=== PATIENT | female | born 1975 | race Caucasian/White ===

== ENCOUNTER 2021-03-23 14:31 | Inpatient (IN) | payer SELFPAY ==
[2021-03-23 15:09] LABS: #Basophils 0.1 10x3/uL (0.0-0.2); #Eosinphils 0.2 10x3/uL (0.0-0.5); #Monocytes 0.8 10x3/uL (0.0-1.1); #Neutrophils 7.9 10x3/uL (1.5-8.4); %Basophils 0.6 % (0.0-2.0); %Eosinophils 2.2 % (0.0-6.0); %Lymphocytes 13.8 % (18.0-47.0); %Monocytes 7.7 % (0.0-10.0); %Neutrophils 74.8 % (40.0-75.0); Mean Corpuscular HGB CONC 31.9 g/dL (32.0-36.0); Mean Corpuscular Hemoglobin 27.8 pg (27.0-33.0); Mean Corpuscular Volume 87.2 fl (81.6-98.3); Mean Platelet Volume 11.1 fl (7.4-10.4); Platelet Count 338 10x3/uL (150-450); RBC Distribution Width 14.8 % (11.5-14.5); Red Blood Cell (RBC) Count 4.68 10x6/uL (3.90-5.03); White Blood Cell (WBC) Count 10.6 10x3/uL (3.5-10.5)
[2021-03-23 15:11] LABS: BHCG - Serum Negative (NEGATIVE); Pregs Control Background? CLEAR/WHITE (CLR/WHITE); Pregs Control Bar Appear? YES (CONTROL BAR)
[2021-03-23 15:18] LABS: ALT (SGPT) 23 U/L (8-55); AST (SGOT) 15 U/L (5-34); Albumin 3.8 g/dL (3.5-5.0); Alkaline Phosphatase 98 U/L (40-110); Anion Gap 15 mmol/L (10-20); BUN (Urea Nitrogen) 20 mg/dL (7.0-18.7); Bilirubin, Total 0.3 mg/dL (0.2-1.2); Calc. Creatinine Clearance 0 mL/min (70-130); Calcium 8.7 mg/dL (7.8-10.44); Carbon Dioxide 21 mmol/L (22-29); Chloride 103 mmol/L (98-107); Globulin 3.9 g/dL (2.4-3.5); Glucose 330 mg/dL (70-105); Lipase 13 U/L (8-78); Potassium 4.3 mmol/L (3.5-5.1); Protein, Total 7.7 g/dL (6.0-8.3); Sodium 135 mmol/L (136-145)
[2021-03-23 15:24] LABS: Actual Bicarbonate (HCO3a) 24.6 mEq/L (22-28); Base Excess (BEa) 0.2 mEq/L (-2.0 to +3.0); CO2 Tension 39.2 mmHg (35.0-45.0); Calcium, Ionized (arterial) 1.14 mmol/L (1.12-1.30); Hemoglobin (Hb) 12.5 g/dL (12.0-16.0); O2 Tension (PaO2), arterial 72.4 mmHg (80.0-100.0); Potassium - ABG Lab 3.9 mmol/L (3.70-5.30); Puncture Site LBA; pH, Arterial 7.42 (7.35-7.45)
[2021-03-23 15:38] LABS: CKMB 2.5 ng/mL (0-6.6)
[2021-03-23 16:41] LABS: SARS-CoV-2 NAA Rapid Test DETECTED (NotDetected)
[2021-03-23] MEDS ORDERED: Piperacillin/Tazobactam 3.375 GM VIAL ONE (16:54)
[2021-03-23] MEDS ORDERED: Dexamethasone 10 MG/ML VIAL ONE (16:55)
[2021-03-23] MEDS ORDERED: Aspirin Chewable 81 MG TAB ONE (17:14)
[2021-03-23] MEDS ORDERED: Nitroglycerin 2% Ointment 1 INCH/1 GM Packet ONE (17:15)
[2021-03-23] MEDS ORDERED: Vancomycin HCl 1.5 GM, Admixture Fee 1 EACH in Sodium Chloride 0.9% 500 ML IVPB SCH (18:00)
[2021-03-23] MEDS ORDERED: Acetaminophen 325 MG TAB PO PRN (19:47)
[2021-03-23] MEDS ORDERED: Dextrose 5% in Water 1,000 ML IV PRN (19:47)
[2021-03-23] MEDS ORDERED: Senokot S 8.6-50 MG TAB PO PRN (19:47)
[2021-03-23] MEDS ORDERED: Calcium Carbonate 500 MG ChewTAB PO PRN (19:47)
[2021-03-23] MEDS ORDERED: Dextrose 50% Abboject 50 ML SYRINGE SLOW IVP PRN (19:47)
[2021-03-23] MEDS ORDERED: Ondansetron PF 4 MG/2 ML Vial IVP PRN (19:47)
[2021-03-23 19:48] VITALS: BMI 42.5
[2021-03-23] MEDS ORDERED: Sodium Chloride 0.9% 1,000 ML IV SCH (20:00)
[2021-03-23] MEDS: Atorvastatin Calcium 40 MG TAB PO SCH (21:41)
[2021-03-23] MEDS: Benzonatate 100 MG CAP PO SCH (21:42)
[2021-03-23] MEDS: HumaLOG 300 UNITS/3 ML VIAL SC PRN (21:42)
[2021-03-23] MEDS: Famotidine 20 MG TAB PO SCH (21:42)
[2021-03-23] MEDS: Lisinopril 10 MG TAB PO SCH (21:42)
[2021-03-23] MEDS: Lantus 1000 UNITS/10 ML VIAL SC SCH (21:43)
[2021-03-23] MEDS: Cefepime 1 GM in Sodium Chloride 0.9% 100 ML IVPB SCH (21:45)
[2021-03-23 21:52] LABS: HIV (1/2) Antibody/Antigen Non-Reactive (NonReactive); HIV 1/2 INDEX 0.12 S/CO (<1.00)
[2021-03-23 23:55] LABS: Legionella Urinary Ag Negative (Negative); Strep pneumo Urine Ag NEGATIVE (NEGATIVE)
[2021-03-24 05:11] LABS: ALT (SGPT) 23 U/L (8-55); AST (SGOT) 14 U/L (5-34); Albumin 3.7 g/dL (3.5-5.0); Alkaline Phosphatase 94 U/L (40-110); Anion Gap 16 mmol/L (10-20); BUN (Urea Nitrogen) 20 mg/dL (7.0-18.7); Bilirubin, Total 0.4 mg/dL (0.2-1.2); Calc. Creatinine Clearance 129 mL/min (70-130); Calcium 8.9 mg/dL (7.8-10.44); Carbon Dioxide 20 mmol/L (22-29); Chloride 104 mmol/L (98-107); Globulin 3.9 g/dL (2.4-3.5); Glucose 361 mg/dL (70-105); Potassium 4.6 mmol/L (3.5-5.1); Protein, Total 7.6 g/dL (6.0-8.3); Sodium 135 mmol/L (136-145)
[2021-03-24 05:13] LABS: #Basophils 0.1 10x3/uL (0.0-0.2); #Monocytes 0.4 10x3/uL (0.0-1.1); #Neutrophils 9.3 10x3/uL (1.5-8.4); %Basophils 0.5 % (0.0-2.0); %Eosinophils 0.1 % (0.0-6.0); %Lymphocytes 8.4 % (18.0-47.0); %Monocytes 3.5 % (0.0-10.0); %Neutrophils 86.2 % (40.0-75.0); Hemoglobin 12.6 g/dL (12.0-15.5); Mean Corpuscular HGB CONC 32.1 g/dL (32.0-36.0); Mean Corpuscular Hemoglobin 28.2 pg (27.0-33.0); Mean Corpuscular Volume 87.7 fl (81.6-98.3); Mean Platelet Volume 11.3 fl (7.4-10.4); Platelet Count 333 10x3/uL (150-450); RBC Distribution Width 14.8 % (11.5-14.5); Red Blood Cell (RBC) Count 4.47 10x6/uL (3.90-5.03); White Blood Cell (WBC) Count 10.7 10x3/uL (3.5-10.5)
[2021-03-24] MEDS: HumaLOG 300 UNITS/3 ML VIAL SC PRN ×2 (06:16→11:52)
[2021-03-24] MEDS: Lisinopril 10 MG TAB PO SCH ×2 (08:53→20:59)
[2021-03-24] MEDS: Aspirin 81 mg Enteric Coated Tablet PO SCH (08:53)
[2021-03-24] MEDS: Cefepime 1 GM in Sodium Chloride 0.9% 100 ML IVPB SCH ×2 (08:53→20:57)
[2021-03-24] MEDS: Famotidine 20 MG TAB PO SCH ×2 (08:53→20:59)
[2021-03-24] MEDS: Clopidogrel Bisulfate 75 MG TAB PO SCH (08:54)
[2021-03-24] MEDS: Benzonatate 100 MG CAP PO SCH ×3 (08:54→20:59)
[2021-03-24] MEDS: Carvedilol 3.125 MG TAB PO SCH ×2 (08:54→16:59)
[2021-03-24] MEDS: Empagliflozin 10 MG TAB PO SCH (08:54)
[2021-03-24] MEDS: Enoxaparin Sodium 40 MG/0.4 ML SYRINGE SC SCH (08:54)
[2021-03-24] MEDS: VANCOMYCIN 1.5 GM in Sodium Chloride 0.9% 500 ML IVPB SCH ×2 (10:23→20:58)
[2021-03-24] MEDS ORDERED: Ventolin HFA Inhaler 60 PUFF INHALER INH SCH ×3 (13:30→19:00)
[2021-03-24] MEDS ORDERED: Lantus 1000 UNITS/10 ML VIAL SC SCH (13:45)
[2021-03-24] MEDS ORDERED: Gabapentin 400 MG CAP PO SCH (14:00)
[2021-03-24] MEDS: Gabapentin 400 MG CAP PO SCH ×3 (14:54→21:00)
[2021-03-24] MEDS: Ventolin HFA Inhaler 60 PUFF INHALER INH SCH (19:30)
[2021-03-24 20:45] LABS: SARS-CoV-2 IgG Ab Non-Reactive (NonReactive)
[2021-03-24] MEDS: Lantus 1000 UNITS/10 ML VIAL SC SCH (20:57)
[2021-03-24 20:58] LABS: SARS-CoV-2 IgG Index 1.17 S/CO (< 1.40)
[2021-03-24] MEDS: Atorvastatin Calcium 40 MG TAB PO SCH (20:58)
[2021-03-24] MEDS: Dexamethasone 4 mg/ml Vial SLOW IVP SCH (23:10)
[2021-03-25] MEDS: Ventolin HFA Inhaler 60 PUFF INHALER INH SCH ×4 (01:00→19:08)
[2021-03-25] MEDS ORDERED: Amlodipine 5 MG TAB PO SCH (05:15)
[2021-03-25] MEDS: HumaLOG 300 UNITS/3 ML VIAL SC PRN (05:27)
[2021-03-25 06:45] LABS: ALT (SGPT) 34 U/L (8-55); AST (SGOT) 23 U/L (5-34); Albumin 3.4 g/dL (3.5-5.0); Alkaline Phosphatase 82 U/L (40-110); Anion Gap 16 mmol/L (10-20); BUN (Urea Nitrogen) 22 mg/dL (7.0-18.7); Bilirubin, Total 0.3 mg/dL (0.2-1.2); CRP (Inflammatory) 4.43 mg/dL (= or < 0.5); Calc. Creatinine Clearance 140 mL/min (70-130); Calcium 8.5 mg/dL (7.8-10.44); Carbon Dioxide 20 mmol/L (22-29); Chloride 105 mmol/L (98-107); Globulin 3.7 g/dL (2.4-3.5); Glucose 158 mg/dL (70-105); Potassium 3.8 mmol/L (3.5-5.1); Protein, Total 7.1 g/dL (6.0-8.3); Sodium 137 mmol/L (136-145)
[2021-03-25] MEDS: Zinc Gluconate 50 MG TAB PO SCH (08:41)
[2021-03-25] MEDS: Empagliflozin 10 MG TAB PO SCH (08:41)
[2021-03-25] MEDS: Ascorbic Acid 500 mg Chewable Tablet PO SCH (08:42)
[2021-03-25] MEDS: Gabapentin 400 MG CAP PO SCH ×3 (08:42→20:15)
[2021-03-25] MEDS: Clopidogrel Bisulfate 75 MG TAB PO SCH (08:42)
[2021-03-25] MEDS: Famotidine 20 MG TAB PO SCH ×2 (08:42→20:17)
[2021-03-25] MEDS: Aspirin 81 mg Enteric Coated Tablet PO SCH (08:42)
[2021-03-25] MEDS: Carvedilol 3.125 MG TAB PO SCH ×2 (08:42→18:44)
[2021-03-25] MEDS: Lisinopril 10 MG TAB PO SCH ×2 (08:42→20:18)
[2021-03-25] MEDS: Benzonatate 100 MG CAP PO SCH ×3 (08:42→20:16)
[2021-03-25] MEDS: Cholecalciferol (Vitamin D3) 400 UNITS TAB PO SCH (08:42)
[2021-03-25] MEDS: Lantus 1000 UNITS/10 ML VIAL SC SCH ×2 (08:43→21:00)
[2021-03-25] MEDS: Enoxaparin Sodium 40 MG/0.4 ML SYRINGE SC SCH (08:43)
[2021-03-25] MEDS ORDERED: Lantus 1000 UNITS/10 ML VIAL SC SCH (09:00)
[2021-03-25] MEDS ORDERED: REMDESIVIR 200 MG in Sodium Chloride 0.9% 250 ML 210 ML IV SCH ×2 (10:00→12:00)
[2021-03-25] MEDS: HYDROcodone/Acetaminophen 5/325 mg Tablet PO PRN (13:43)
[2021-03-25] MEDS: Guaifenesin DM 100-10/5 ML UDCUP PO PRN (18:44)
[2021-03-25] MEDS: Atorvastatin Calcium 40 MG TAB PO SCH (20:16)
[2021-03-25] MEDS: Dexamethasone 4 mg/ml Vial SLOW IVP SCH (20:18)
[2021-03-26] MEDS: Ventolin HFA Inhaler 60 PUFF INHALER INH SCH ×4 (00:46→18:57)
[2021-03-26] MEDS: HYDROcodone/Acetaminophen 5/325 mg Tablet PO PRN ×2 (01:15→23:40)
[2021-03-26 05:30] LABS: ALT (SGPT) 26 U/L (8-55); AST (SGOT) 16 U/L (5-34); Albumin 3.4 g/dL (3.5-5.0); Alkaline Phosphatase 77 U/L (40-110); Anion Gap 16 mmol/L (10-20); BUN (Urea Nitrogen) 27 mg/dL (7.0-18.7); Bilirubin, Total 0.3 mg/dL (0.2-1.2); Calc. Creatinine Clearance 111 mL/min (70-130); Calcium 8.4 mg/dL (7.8-10.44); Carbon Dioxide 19 mmol/L (22-29); Chloride 104 mmol/L (98-107); Globulin 4.2 g/dL (2.4-3.5); Glucose 247 mg/dL (70-105); Potassium 4.2 mmol/L (3.5-5.1); Protein, Total 7.6 g/dL (6.0-8.3); Sodium 135 mmol/L (136-145)
[2021-03-26] MEDS: Enoxaparin Sodium 40 MG/0.4 ML SYRINGE SC SCH (08:34)
[2021-03-26] MEDS: Gabapentin 400 MG CAP PO SCH ×3 (08:34→21:31)
[2021-03-26] MEDS: Lisinopril 10 MG TAB PO SCH ×2 (08:35→21:58)
[2021-03-26] MEDS: Clopidogrel Bisulfate 75 MG TAB PO SCH (08:35)
[2021-03-26] MEDS: Benzonatate 100 MG CAP PO SCH ×3 (08:35→21:32)
[2021-03-26] MEDS: Aspirin 81 mg Enteric Coated Tablet PO SCH (08:35)
[2021-03-26] MEDS: Famotidine 20 MG TAB PO SCH ×2 (08:35→21:32)
[2021-03-26] MEDS: Amlodipine 5 MG TAB PO SCH (08:35)
[2021-03-26] MEDS: Ascorbic Acid 500 mg Chewable Tablet PO SCH (08:35)
[2021-03-26] MEDS: Zinc Gluconate 50 MG TAB PO SCH (08:35)
[2021-03-26] MEDS: Carvedilol 3.125 MG TAB PO SCH ×2 (08:35→17:38)
[2021-03-26] MEDS: Cholecalciferol (Vitamin D3) 400 UNITS TAB PO SCH (08:35)
[2021-03-26] MEDS: Lantus 1000 UNITS/10 ML VIAL SC SCH ×2 (08:37→22:31)
[2021-03-26] MEDS: Empagliflozin 10 MG TAB PO SCH (08:37)
[2021-03-26] MEDS: REMDESIVIR 100 MG in Sodium Chloride 0.9% 250 ML 230 ML IV SCH (10:58)
[2021-03-26] MEDS: HumaLOG 300 UNITS/3 ML VIAL SC PRN ×2 (11:37→18:16)
[2021-03-26] MEDS: Guaifenesin DM 100-10/5 ML UDCUP PO PRN ×2 (15:53→21:30)
[2021-03-26] MEDS: Atorvastatin Calcium 40 MG TAB PO SCH (21:33)
[2021-03-26] MEDS: Dexamethasone 4 mg/ml Vial SLOW IVP SCH (21:35)
[2021-03-26 22:36] LABS: Mycoplasma pneumoniae IgG AB 1366 U/mL (0-99); Mycoplasma pneumoniae IgM AB Less than 770 U/mL (0-769)
[2021-03-27] MEDS: Ventolin HFA Inhaler 60 PUFF INHALER INH SCH ×4 (00:34→15:00)
[2021-03-27] MEDS: Ventolin HFA Inhaler 60 PUFF INHALER INH PRN ×2 (04:40→19:59)
[2021-03-27 04:54] LABS: ALT (SGPT) 31 U/L (8-55); AST (SGOT) 22 U/L (5-34); Albumin 3.3 g/dL (3.5-5.0); Alkaline Phosphatase 79 U/L (40-110); Anion Gap 15 mmol/L (10-20); BUN (Urea Nitrogen) 35 mg/dL (7.0-18.7); Bilirubin, Total 0.2 mg/dL (0.2-1.2); Calc. Creatinine Clearance 125 mL/min (70-130); Calcium 8.2 mg/dL (7.8-10.44); Carbon Dioxide 21 mmol/L (22-29); Chloride 104 mmol/L (98-107); Glucose 314 mg/dL (70-105); Potassium 4.7 mmol/L (3.5-5.1); Protein, Total 7.3 g/dL (6.0-8.3); Sodium 135 mmol/L (136-145)
[2021-03-27] MEDS: HumaLOG 300 UNITS/3 ML VIAL SC PRN ×4 (05:53→22:18)
[2021-03-27] MEDS: Amlodipine 5 MG TAB PO SCH (08:56)
[2021-03-27] MEDS: Empagliflozin 10 MG TAB PO SCH (08:56)
[2021-03-27] MEDS: Aspirin 81 mg Enteric Coated Tablet PO SCH (08:56)
[2021-03-27] MEDS: Carvedilol 3.125 MG TAB PO SCH ×2 (08:56→17:18)
[2021-03-27] MEDS: Ascorbic Acid 500 mg Chewable Tablet PO SCH (08:56)
[2021-03-27] MEDS: Clopidogrel Bisulfate 75 MG TAB PO SCH (08:56)
[2021-03-27] MEDS: Enoxaparin Sodium 40 MG/0.4 ML SYRINGE SC SCH (08:56)
[2021-03-27] MEDS: Cholecalciferol (Vitamin D3) 400 UNITS TAB PO SCH (08:56)
[2021-03-27] MEDS: Famotidine 20 MG TAB PO SCH ×2 (08:56→21:36)
[2021-03-27] MEDS: Benzonatate 100 MG CAP PO SCH ×3 (08:56→21:36)
[2021-03-27] MEDS: Gabapentin 400 MG CAP PO SCH ×3 (08:57→21:36)
[2021-03-27] MEDS: Lisinopril 10 MG TAB PO SCH ×2 (08:57→21:37)
[2021-03-27] MEDS: Lantus 1000 UNITS/10 ML VIAL SC SCH ×2 (08:57→21:37)
[2021-03-27] MEDS: Zinc Gluconate 50 MG TAB PO SCH (08:57)
[2021-03-27] MEDS: guaiFENesin ER 600 MG TAB PO SCH ×2 (08:59→21:38)
[2021-03-27] MEDS: REMDESIVIR 100 MG in Sodium Chloride 0.9% 250 ML 230 ML IV SCH (12:58)
[2021-03-27] MEDS: Atorvastatin Calcium 40 MG TAB PO SCH (21:37)
[2021-03-27] MEDS: Dexamethasone 4 mg/ml Vial SLOW IVP SCH (21:38)
[2021-03-27] MEDS: HYDROcodone/Acetaminophen 5/325 mg Tablet PO PRN (21:42)
[2021-03-28] MEDS ORDERED: hydrALAZINE 20 MG/ML VIAL SLOW IVP SCH (01:30)
[2021-03-28] MEDS: Ventolin HFA Inhaler 60 PUFF INHALER INH SCH ×4 (01:45→19:50)
[2021-03-28 05:40] LABS: Albumin 3.4 g/dL (3.5-5.0); Anion Gap 15 mmol/L (10-20); BUN (Urea Nitrogen) 32 mg/dL (7.0-18.7); Bilirubin, Total 0.2 mg/dL (0.2-1.2); Calc. Creatinine Clearance 113 mL/min (70-130); Calcium 8.6 mg/dL (7.8-10.44); Carbon Dioxide 23 mmol/L (22-29); Chloride 101 mmol/L (98-107); Globulin 4.1 g/dL (2.4-3.5); Glucose 367 mg/dL (70-105); Potassium 4.5 mmol/L (3.5-5.1); Protein, Total 7.5 g/dL (6.0-8.3); Sodium 134 mmol/L (136-145)
[2021-03-28 05:41] LABS: ALT (SGPT) 28 U/L (8-55); AST (SGOT) 14 U/L (5-34); Alkaline Phosphatase 88 U/L (40-110)
[2021-03-28] MEDS: HumaLOG 300 UNITS/3 ML VIAL SC PRN ×4 (05:57→21:09)
[2021-03-28] MEDS: Empagliflozin 10 MG TAB PO SCH (08:34)
[2021-03-28] MEDS: Clopidogrel Bisulfate 75 MG TAB PO SCH (08:34)
[2021-03-28] MEDS: Ascorbic Acid 500 mg Chewable Tablet PO SCH (08:34)
[2021-03-28] MEDS: Benzonatate 100 MG CAP PO SCH ×3 (08:34→20:28)
[2021-03-28] MEDS: Cholecalciferol (Vitamin D3) 400 UNITS TAB PO SCH (08:34)
[2021-03-28] MEDS: Carvedilol 6.25 MG TAB PO SCH ×2 (08:34→19:48)
[2021-03-28] MEDS: Aspirin 81 mg Enteric Coated Tablet PO SCH (08:34)
[2021-03-28] MEDS: Enoxaparin Sodium 40 MG/0.4 ML SYRINGE SC SCH (08:34)
[2021-03-28] MEDS: Gabapentin 400 MG CAP PO SCH ×3 (08:35→20:28)
[2021-03-28] MEDS: Famotidine 20 MG TAB PO SCH ×2 (08:35→20:28)
[2021-03-28] MEDS: Lantus 1000 UNITS/10 ML VIAL SC SCH ×2 (08:36→21:08)
[2021-03-28] MEDS: guaiFENesin ER 600 MG TAB PO SCH ×2 (08:36→20:28)
[2021-03-28] MEDS: metFORMIN 500 MG TAB PO SCH ×2 (08:36→20:28)
[2021-03-28] MEDS: Zinc Gluconate 50 MG TAB PO SCH (08:36)
[2021-03-28] MEDS ORDERED: Lisinopril 20 MG TAB PO SCH (09:00)
[2021-03-28] MEDS: HYDROcodone/Acetaminophen 5/325 mg Tablet PO PRN (09:04)
[2021-03-28] MEDS ORDERED: Labetalol HCl 100 MG/20 ML VIAL SLOW IVP PRN (12:40)
[2021-03-28] MEDS: REMDESIVIR 100 MG in Sodium Chloride 0.9% 250 ML 230 ML IV SCH (12:41)
[2021-03-28] MEDS: hydrALAZINE 20 MG/ML VIAL SLOW IVP PRN (13:33)
[2021-03-28] MEDS: Ventolin HFA Inhaler 60 PUFF INHALER INH PRN (14:00)
[2021-03-28] MEDS ORDERED: Amlodipine 5 MG TAB PO SCH (14:15)
[2021-03-28] MEDS ORDERED: Furosemide 20 MG TAB PO SCH (18:00)
[2021-03-28] MEDS ORDERED: hydrALAZINE 25 MG TAB PO SCH (19:00)
[2021-03-28] MEDS ORDERED: Atorvastatin Calcium 40 MG TAB PO SCH (21:00)
[2021-03-28] MEDS: Dexamethasone 4 mg/ml Vial SLOW IVP SCH (21:09)
[2021-03-29] MEDS: hydrALAZINE 20 MG/ML VIAL SLOW IVP PRN (00:06)
[2021-03-29] MEDS: Ventolin HFA Inhaler 60 PUFF INHALER INH SCH ×3 (00:30→13:43)
[2021-03-29 05:14] LABS: ALT (SGPT) 23 U/L (8-55); AST (SGOT) 13 U/L (5-34); Albumin 3.3 g/dL (3.5-5.0); Alkaline Phosphatase 78 U/L (40-110); Anion Gap 16 mmol/L (10-20); BUN (Urea Nitrogen) 33 mg/dL (7.0-18.7); Bilirubin, Total 0.4 mg/dL (0.2-1.2); Calc. Creatinine Clearance 126 mL/min (70-130); Calcium 8.7 mg/dL (7.8-10.44); Carbon Dioxide 23 mmol/L (22-29); Chloride 101 mmol/L (98-107); Globulin 4.3 g/dL (2.4-3.5); Glucose 282 mg/dL (70-105); Potassium 4.5 mmol/L (3.5-5.1); Protein, Total 7.6 g/dL (6.0-8.3); Sodium 135 mmol/L (136-145)
[2021-03-29] MEDS: HYDROcodone/Acetaminophen 5/325 mg Tablet PO PRN (06:05)
[2021-03-29] MEDS: HumaLOG 300 UNITS/3 ML VIAL SC PRN (06:05)
[2021-03-29] MEDS: guaiFENesin ER 600 MG TAB PO SCH (08:14)
[2021-03-29] MEDS: Gabapentin 400 MG CAP PO SCH ×2 (08:15→15:40)
[2021-03-29] MEDS: Clopidogrel Bisulfate 75 MG TAB PO SCH (08:15)
[2021-03-29] MEDS: Famotidine 20 MG TAB PO SCH (08:15)
[2021-03-29] MEDS: Cholecalciferol (Vitamin D3) 400 UNITS TAB PO SCH (08:16)
[2021-03-29] MEDS: Zinc Gluconate 50 MG TAB PO SCH (08:16)
[2021-03-29] MEDS: Ascorbic Acid 500 mg Chewable Tablet PO SCH (08:16)
[2021-03-29] MEDS: metFORMIN 500 MG TAB PO SCH (08:17)
[2021-03-29] MEDS: Carvedilol 12.5 MG TAB PO SCH ×2 (08:23→16:58)
[2021-03-29] MEDS: hydrALAZINE 25 MG TAB PO SCH ×2 (08:25→15:38)
[2021-03-29] MEDS: Benzonatate 100 MG CAP PO SCH ×2 (08:25→15:39)
[2021-03-29] MEDS: Lantus 1000 UNITS/10 ML VIAL SC SCH (08:26)
[2021-03-29] MEDS: Carvedilol 6.25 MG TAB PO SCH (08:35)
[2021-03-29] MEDS ORDERED: Clopidogrel Bisulfate 75 MG TAB PO SCH (09:00)
[2021-03-29] MEDS ORDERED: Aspirin 81 mg Enteric Coated Tablet PO SCH (09:00)
[2021-03-29] MEDS ORDERED: Furosemide 20 MG TAB PO SCH (09:00)
[2021-03-29] MEDS ORDERED: Rivaroxaban 2.5 MG TAB PO SCH (09:00)
[2021-03-29] MEDS ORDERED: Losartan 25 MG TAB PO SCH ×2 (09:00)
[2021-03-29] MEDS ORDERED: Amlodipine 10 MG TAB PO SCH (09:00)
[2021-03-29] MEDS ORDERED: Empagliflozin 25 MG TAB PO SCH (09:00)
[2021-03-29] MEDS ORDERED: Amlodipine 5 MG TAB PO SCH ×2 (09:00)
[2021-03-29 11:07] VITALS: TEMP 98.2
[2021-03-29] MEDS: REMDESIVIR 100 MG in Sodium Chloride 0.9% 250 ML 230 ML IV SCH (12:32)
[2021-03-29 17:24] VITALS: BP 149/78
[2021-03-30] MEDS ORDERED: Dexamethasone 4 MG TAB PO SCH (08:00)
== END 2021-03-29 18:15 | disposition home or self-care (01) | DRG 871 ==
LOC: CSHERS 14:31 → CSHTELE 19:32
PROVIDERS: ADMIT Student in an Organized Health Care Education/Training Program; ATTEND Internal Medicine
PROC: 8E0ZXY6 Isolation (ICD-10-PCS; 2021-03-23)
PROC: XW033E5 Introduction of Remdesivir Anti-infective into Peripheral Vein, Percutaneous Approach, New Technology Group 5 (ICD-10-PCS; principal; 2021-03-25)
DX: A41.89 Other specified sepsis (principal); U07.1 COVID-19; J12.82 Pneumonia due to coronavirus disease 2019; J96.01 Acute respiratory failure with hypoxia; I10 Essential (primary) hypertension; E11.9 Type 2 diabetes mellitus without complications; R77.8 Other specified abnormalities of plasma proteins; I16.0 Hypertensive urgency; E11.51 Type 2 diabetes mellitus with diabetic peripheral angiopathy without gangrene; E78.2 Mixed hyperlipidemia; E11.65 Type 2 diabetes mellitus with hyperglycemia; I25.10 Atherosclerotic heart disease of native coronary artery without angina pectoris; Z88.2 Allergy status to sulfonamides; Z95.5 Presence of coronary angioplasty implant and graft; Z98.51 Tubal ligation status; Z87.891 Personal history of nicotine dependence; Z79.4 Long term (current) use of insulin
CPT/HCPCS: 36415; 36416; 36600; 71045; 71275; 80053; 82553; 82805; 83605; 83690; 84145; 84484; 84703; 85025; 85379; 86140; 86769; 87389; 87449; 87631; 87804; 87899; 93005; 93306; 94664; 94760; 96365; 96375; J0360; J0692; J1100; J1650; J1815; J2543; J3370; J3490; J7030; J7050; U0002